=== PATIENT | female | born 1935 | race Hispanic/Latino ===

== ENCOUNTER 2017-12-17 10:01 | Emergency (ER) | payer MEDICARE, OTHER ==
[2017-12-17 10:34] LABS: BASOPHILS % (AUTO) 1.3 % (0.0-5.0); EOSINOPHILS % (AUTO) 2.4 % (0.0-8.0); HEMATOCRIT 46.6 % (36-48); LYMPHOCYTES % (AUTO) 32.9 % (21.0-51.0); MEAN CORPUSCULAR HEMOGLOBIN 31.8 pg (27.0-33.0); MEAN CORPUSCULAR HGB CONC 33.9 g/dL (32.0-36.0); MEAN CORPUSCULAR VOLUME 93.9 fL (79-99); MONOCYTES % (AUTO) 6.8 % (3.0-13.0); NEUTROPHILS % (AUTO) 56.6 % (40.0-77.0); PLATELET COUNT (AUTO) 163 K/uL (130-400); RED BLOOD CELL COUNT(AUTO) 4.97 MIL/uL (4.00-5.50); RED CELL DISTRIBUTION WIDTH 13.9 % (11.0-15.5)
[2017-12-17 10:40] LABS: CREATININE 1.1 mg/dL (0.5-1.5); POTASSIUM 3.3 mmol/L (3.5-5.1)
[2017-12-17 10:46] LABS: ALBUMIN 3.9 g/dL (3.5-5.0); BILIRUBIN,DIRECT 0.3 mg/dL (0.0-0.3); BILIRUBIN,TOTAL 1.1 mg/dL (0.2-1.0); INR 0.99 (0.85-1.15); PARTIAL THROMBOPLASTIN TIME 26.1 SEC (26.3-35.5); PROTHROMBIN TIME 10.4 SEC (9.6-11.6); TOTAL PROTEIN, SERUM 7.8 g/dL (6.0-8.3)
== END 2017-12-17 11:18 | disposition home or self-care (01) ==
LOC: EDH 10:01
DX: K64.4 Residual hemorrhoidal skin tags (principal); K59.00 Constipation, unspecified; I10 Essential (primary) hypertension; E78.5 Hyperlipidemia, unspecified; F03.90 Unspecified dementia, unspecified severity, without behavioral disturbance, psychotic disturbance, mood disturbance, and anxiety
CPT/HCPCS: 36415; 80048; 80076; 82270; 85025; 85610; 85730

== ENCOUNTER → 2018-08-01 | Outpatient (CLI) | payer MEDICARE, OTHER | END | disposition home or self-care (01) | LOC: OIH 10:52 | PROVIDERS: ATTEND Internal Medicine | DX: I10 Essential (primary) hypertension (principal) | CPT/HCPCS: 71046 ==

== ENCOUNTER 2018-09-10 18:27 | Inpatient (IN) | payer MEDICARE | END 2018-09-14 11:15 | disposition home or self-care (01) | LOC: EDH 18:27 → 4CH 09-11 01:00 → EDHIP 21:21 → 3DH 22:47 → EDHIP 23:08 → 2DH 09-11 14:33 | DX: S01.01XA Laceration without foreign body of scalp, initial encounter (principal); I21.4 Non-ST elevation (NSTEMI) myocardial infarction; J10.00 Influenza due to other identified influenza virus with unspecified type of pneumonia; N39.0 Urinary tract infection, site not specified; E86.0 Dehydration; R55 Syncope and collapse; F03.90 Unspecified dementia, unspecified severity, without behavioral disturbance, psychotic disturbance, mood disturbance, and anxiety; J10.1 Influenza due to other identified influenza virus with other respiratory manifestations; E87.6 Hypokalemia ==

== ENCOUNTER 2018-09-26 20:19 | Observation (INO) | payer MEDICARE ==
[~2018-09-26] VITALS: Ht 157.5 cm; Wt 70.1 kg
[~2018-09-26 20:19] MED LIST: AEC81 PO; DONE10TA36 PO; FENO48TA4 PO; HYDR25TA PO; MEMA10TA20 PO; MIRA50TA PO; NIFE90TA38 PO; ROSU40TA20 PO; TELM80TA10 PO
[2018-09-26] MEDS ORDERED: SODIUM CHLORIDE 0.9% 1000ML 1,000 ML IV ONE ×2 (21:28→23:35)
[2018-09-26 21:31] LABS: BASOPHILS % (AUTO) 0.4 % (0.0-5.0); EOSINOPHILS % (AUTO) 0.1 % (0.0-8.0); HEMATOCRIT 49.7 % (36-48); LYMPHOCYTES % (AUTO) 10.2 % (21.0-51.0); MEAN CORPUSCULAR HGB CONC 35.1 g/dL (32.0-36.0); MEAN CORPUSCULAR VOLUME 90.9 fL (79-99); MONOCYTES % (AUTO) 5.7 % (3.0-13.0); NEUTROPHILS % (AUTO) 83.6 % (40.0-77.0); NUCLEATED RED BLOOD CELLS 0.1 % (0.0-0.19); PLATELET COUNT (AUTO) 190 K/uL (130-400); RED BLOOD CELL COUNT(AUTO) 5.46 MIL/uL (4.00-5.50); RED CELL DISTRIBUTION WIDTH 13.4 % (11.0-15.5); WHITE BLOOD COUNT (AUTO) 13.1 K/uL (4.8-10.8)
[2018-09-26 21:50] LABS: INR 1.06 (0.85-1.15); PARTIAL THROMBOPLASTIN TIME 26.8 SEC (26.3-35.5); PROTHROMBIN TIME 11.1 SEC (9.6-11.6)
[2018-09-26 21:57] LABS: BILIRUBIN,TOTAL 2.5 mg/dL (0.2-1.0); CREATININE 1.1 mg/dL (0.5-1.5); TOTAL PROTEIN, SERUM 7.6 g/dL (6.0-8.3)
[2018-09-26 21:59] LABS: POTASSIUM 2.7 mmol/L (3.5-5.1)
[2018-09-26 22:04] LABS: APPEARANCE,URINE Cloudy (CLEAR); BILIRUBIN,URINE Negative (NEGATIVE); COLOR,URINE Yellow (YELLOW); GLUCOSE, URINE (UA) Negative (NEGATIVE); KETONES,URINE Trace mg/dL (NEGATIVE); LEUKOCYTE ESTERASE ,URINE Negative (NEGATIVE); NITRATE,URINE Negative (NEGATIVE); OCCULT BLOOD,URINE Negative (NEGATIVE); PH,URINE 6.5 (5.0-8.0); PROTEIN,URINE POS 1+ mg/dL (NEGATIVE)
[2018-09-26 22:11] LABS: BACTERIA,URINE Few /HPF (None Seen); MUCUS,URINE Few LPF (None Seen); RBC,URINE None Seen /HPF (0-1); SQUAMOUS EPITHELIAL CELL,UR None Seen /HPF (0-2)
[2018-09-26 22:12] LABS: AMPHET/METH SCREEN,URINE NEGATIVE (NEGATIVE); BARBITURATE SCREEN, URINE NEGATIVE (NEGATIVE); BENZODIAZEPINES SCREEN,URINE NEGATIVE (NEGATIVE); CANNABINOID SCREEN,URINE NEGATIVE (NEGATIVE); COCAINE SCREEN,URINE NEGATIVE (NEGATIVE); OPIATE SCREEN,URINE NEGATIVE (NEGATIVE); PHENCYCLIDINE SCREEN,URINE NEGATIVE (NEGATIVE)
[2018-09-26] MEDS ORDERED: POTASSIUM CHLORIDE 10% ELIXIR 20 MEQ/15 ML UDCUP ONE (22:26)
[2018-09-26] MEDS ORDERED: ASPIRIN 325 MG TABLET ONE (23:35)
[2018-09-26] MEDS ORDERED: SODIUM CHLORIDE 0.9% 10 ML VIAL IVP PRN (23:45)
[2018-09-26] MEDS ORDERED: 1/2 NORMAL SALINE 1,000 ML IV SCH (23:45)
[2018-09-27] MEDS ORDERED: POTASSIUM CHLORIDE 20MEQ/100ML 100 ML IV PRN (00:15)
[2018-09-27] MEDS ORDERED: LIDOCAINE HCL-MPF 1% 2ML VIAL IJ PRN (00:15)
[2018-09-27] MEDS ORDERED: POTASSIUM CHLORIDE 10% ELIXIR 20 MEQ/15 ML UDCUP PO PRN (00:15)
[2018-09-27 00:42] VITALS: BP 131/47
--- NOTE | 2018-09-27 01:00 | NUR ---
PATIENT ALERT AND ORIENTED TO SELF, FORGETFUL. PATIENT IS IMPULSIVE. NO FACIAL DROOP OR SLURRED SPEECH. PATIENT STRONG PROPERTY OFFICER. BED ALARM ON.
[2018-09-27 03:55] VITALS: BP 116/60
[2018-09-27 04:19] LABS: HEMATOCRIT 40.9 % (36-48); MEAN CORPUSCULAR HEMOGLOBIN 31.8 pg (27.0-33.0); MEAN CORPUSCULAR HGB CONC 35.1 g/dL (32.0-36.0); MEAN CORPUSCULAR VOLUME 90.6 fL (79-99); NUCLEATED RED BLOOD CELLS 0.1 % (0.0-0.19); PLATELET COUNT (AUTO) 175 K/uL (130-400); RED BLOOD CELL COUNT(AUTO) 4.51 MIL/uL (4.00-5.50); RED CELL DISTRIBUTION WIDTH 13.4 % (11.0-15.5); WHITE BLOOD COUNT (AUTO) 8.4 K/uL (4.8-10.8)
[2018-09-27 04:41] LABS: ALBUMIN 3.1 g/dL (3.5-5.0); BILIRUBIN,TOTAL 1.8 mg/dL (0.2-1.0); CREATININE 0.8 mg/dL (0.5-1.5); POTASSIUM 3.1 mmol/L (3.5-5.1); TROPONIN I 0.27 ng/mL (0.00-0.06)
--- NOTE | 2018-09-27 06:45 | NUR ---
DR FUNG ROUNDED ON PATIENT. AWARE OF ELEVATED TROPS. STARTED PATIENT ON METOPROLOL. RESTARTED SOME HOME MEDS.
[2018-09-27 08:23] VITALS: BP 125/48
[2018-09-27] MEDS: **HM** MYRBETRIQ 50MG PO SCH (09:00)
[2018-09-27] MEDS: MEMANTINE HCL 5 MG TABLET PO SCH ×2 (09:15→20:27)
[2018-09-27] MEDS: LOSARTAN 100 MG TABLET PO SCH (09:15)
[2018-09-27] MEDS: METOPROLOL TARTRATE 25 MG TAB PO SCH ×2 (09:15→20:27)
[2018-09-27] MEDS: POTASSIUM CHLORIDE 20 MEQ ERTAB PO PRN ×2 (09:15→14:32)
[2018-09-27 10:13] LABS: TROPONIN I 0.27 ng/mL (0.00-0.06)
[2018-09-27 12:08] VITALS: BP 117/56
[2018-09-27 16:01] VITALS: BP 111/55
[2018-09-27] MEDS ORDERED: MAGNESIUM 2GM PREMIX 50ML 50 ML IV PRN (19:00)
[2018-09-27 20:23] VITALS: BP 118/52
[2018-09-27] MEDS ORDERED: DONEPEZIL HCL 5 MG TAB PO SCH (21:00)
[2018-09-27] MEDS ORDERED: NON-FORMULARY MEDICATION 1 EACH (Memantine HCl 10 MG) PO SCH (21:00)
[2018-09-27] MEDS ORDERED: ATORVASTATIN CALCIUM 40 MG TABLET PO SCH (21:00)
[2018-09-27] MEDS ORDERED: ASPIRIN 81 MG EC TAB PO SCH (21:00)
[2018-09-27] MEDS ORDERED: FENOFIBRATE NANOCRYSTALLIZED 48 MG TAB PO SCH (21:00)
[2018-09-28 00:56] VITALS: BP 126/60
[2018-09-28 03:51] LABS: CREATININE 0.8 mg/dL (0.5-1.5); MAGNESIUM 1.5 mg/dL (1.80-2.40); POTASSIUM 3.6 mmol/L (3.5-5.1)
[2018-09-28 04:32] VITALS: BP 118/56
[2018-09-28 07:51] VITALS: BP 127/53
--- NOTE | 2018-09-28 08:30 | NUR ---
AM ASSESSMENT. PT LAYING IN BED, HOB ELEVATED 30 DEGREES, RESTING. FAMILY @ BEDSIDE. ORIENTED TO SELF ONLY. FOLLOWS COMMANDS. VOICES NEEDS. HX OF DEMENTIA. NO SOB. NO DISTRESS NOTED. DENIES CHEST PAIN OR DISCOMFORT. DENIES PALPITATIONS. TELE: SB 50-SR 60s. DENIES N/V AND/OR DIARRHEA. BR W/BRP. UP W/ASSISTANCE. IV PULLED OUT BY PT. CATHETER TIP INTACT. TAPE & GAUZE APPLIED. PT TO BE DISCHARGED HOME TODAY.
[2018-09-28] MEDS: METOPROLOL TARTRATE 25 MG TAB PO SCH (08:33)
[2018-09-28] MEDS: LOSARTAN 100 MG TABLET PO SCH (08:33)
[2018-09-28] MEDS: MEMANTINE HCL 5 MG TABLET PO SCH (08:33)
[2018-09-28] MEDS: **HM** MYRBETRIQ 50MG PO SCH (08:33)
--- NOTE | 2018-09-28 10:15 | NUR ---
DISCHARGE VERBAL & WRITTEN DISCHARGE INSTRUCTIONS REVIEWED & GIVEN TO PT & SON. QUESTIONS ENCOURAGED & CLARIFIED. PROPER CARE & MGT OF SYNCOPE REVIEWED. PT TO CONTINUE HOME MEDICATIONS INDICATED PER DR FUNG. PT TO F/U W/DR FUNG IN 1-2 WEEKS. TELE DAVID REMOVED. PT & SON TO GATHER PERSONAL BELONGINGS. WILL NOTIFY STAFF WHEN READY TO TAKEN TO PRIVATE VEHICLE.
--- NOTE | 2018-09-28 10:25 | NUR ---
DISCHARGE PT TAKEN TO PRIVATE VEHICLE VIA WC BY Tamiko PEGUERO PCP, ACCOMPANIED BY SON. NO DISTRESS NOTED.
== END 2018-09-28 10:30 | disposition home or self-care (01) ==
LOC: EDH 20:19 → EDHIP 23:00 → 2DH 09-27 00:52
PROVIDERS: ADMIT Internal Medicine; ATTEND Internal Medicine
DX: R55 Syncope and collapse (principal); I25.10 Atherosclerotic heart disease of native coronary artery without angina pectoris; I10 Essential (primary) hypertension; E78.5 Hyperlipidemia, unspecified; I25.2 Old myocardial infarction; G30.9 Alzheimer's disease, unspecified; F02.80 Dementia in other diseases classified elsewhere, unspecified severity, without behavioral disturbance, psychotic disturbance, mood disturbance, and anxiety; Z79.899 Other long term (current) drug therapy
CPT/HCPCS: 36415 ×3; 70450; 71045; 80048; 80053 ×2; 80305; 81001; 82550 ×3; 82948 ×5; 83735 ×2; 83874 ×3; 84484 ×3; 85025; 85027; 85610; 85730; 93005; 96361; 96365; 99284; G0378 ×34; J3475; J3480; J3490; J7030 ×2